=== PATIENT | male | born 1970 | race Hispanic/Latino ===

== ENCOUNTER 2024-09-10 14:43 | Emergency (ER) | payer BC ==
[~2024-09-10] VITALS: Ht 172.7 cm; Wt 78.5 kg
[2024-09-10] MEDS: ORPHENADRINE 60MG/2ML IM ONE (15:02)
[2024-09-10] MEDS: ketOROlac 30MG VIAL (30MG/ML) IM ONE (15:03)
--- NOTE | 2024-09-10 15:29 | ERN ---
General Chief Complaint: Lower Extremity Pain/Injury Stated Complaint: LFT LEG PAIN Time Seen by MD: 14:46 Source: patient History of Present Illness Initial Comments 54-year-old male with left knee pain comes in for further evaluation. Patient does have a history of osteoarthritis of the knees and states that he had right knee pain previously which improved with an injection placed by his PCP. He states that and dislocation the left knee started presenting with discomfort couple of days ago. Past Medical History Past Medical History: No Pertinent History Past Surgical History: None ROS Dictation CONSTITUTIONAL: No chills, no fever, no weakness, no diaphoresis, no malaise. HEAD/FACE: No signs of trauma. EENT: No eye pain, no blurred vision, no tearing, no double vision, no ear pain, no ear discharge, no nose pain, no nasal congestion, no throat pain, no throat swelling, no mouth pain. RESPIRATORY: No cough, no orthopnea, no SOB, no stridor, no wheezing. CARDIOVASCULAR: No chest pain, no edema, no palpitations, no syncope. GASTROINTESTINAL/ABDOMINAL: No abdominal pain, no constipation, no diarrhea, no nausea, no vomiting. GENITOURINARY: No abnormal discharge, no dysuria, no frequent urination, no hematuria. No complaints of pain in the genitals. MUSCULOSKELETAL: No back pain, no gout, joint pain,joint swelling, no muscle pain, no muscle stiffness, no neck pain. INTEGUMENTARY: No change in color, no change in hair/nails, no dryness, no lesion, no lumps, no rash. NEUROLOGICAL/PSYCH: No anxiety, not depressed, no emotional problem, no headache, no numbness, no pre-existing deficit, no history of seizures, no tremors, no weakness. HEMATOLOGIC/LYMPHATIC: Not anemic, no history of blood clots, no apparent bleeding, no bruising, glands not swollen. All Systems Negative, Except as Noted. Physical Exam Physical Exam Dictation VITAL SIGNS: Reviewed. GENERAL APPEARANCE: Alert, oriented x3, no acute distress, obese. HEAD AND FACE: Non-traumatic. EYES: PERRL, pink conjunctivas, eyelid no trauma, anterior chamber clear. EARS: Pinnas intact and no signs of trauma or erythema. Ear canals clear and no discharge. TMs no erythema. NOSE: No discharge, no bleeding. OROPHARYNX: Mouth normal, teeth no caries, tongue pink. Pharynx clear, no erythema. Tonsils no exudates, no abscesses noted. Mucous membrane moist. NECK: Supple, non-tender, no thyromegaly, no masses, no JVD, no bruits. BREAST: Deferred. CHEST: No tenderness, no crepitus, no paradoxical movement, no retractions. LUNGS: Clear, well-ventilated, symmetric, no rales, no wheezing, no rhonchi, no stridor, good breath sounds bilaterally. HEART: Regular rate, regular rhythm, no murmur, no gallops. VASCULAR: No peripheral edema. ABDOMEN: Soft, positive bowel sounds, nondistended, no guarding, nontender, no rebound, no masses no hepatomegaly, no splenomegaly, no Munoz's sign, no hernias. RECTAL: Deferred. GENITAL: Deferred. NEUROLOGICAL: Normal speech, gross motor function intact, gross sensory function intact. MUSCULOSKELETAL: Neck nontender, full range of motion, back nontender, full range of motion. EXTREMITIES: Nontender, full range of motion. SKIN: Color pink, dry, no turgor, no rash, no lacerations, no abrasions, no contusions. LYMPHATICS: Deferred. Results Laboratory and Microbiology Labs Reviewed?: Yes EKG/XRAY/US/CT/MRI X-RAY Comment Knee x-ray left-NAD MDM MDM: Differential diagnosis: Knee strain, osteoarthritis of the knee, fractured kneecap, dislocated knee, Patient is a 54-year-old male coming in to be evaluated for left knee pain. Patient states that he was extensive history of knee pain and has been diagnosed with osteoarthritis of both knees. States he got an injection on the right knee states he felt much better. X-ray performed today did not disclose acute findings knee immobilizer will be placed to help with acute on chronic inflammation. I advised him appropriate follow up with PCP in 1-2 days. ED Course Orders Procedure Category Date Status Time Knee 3vws Lt RAD 09/10/24 Taken 14:57 Orphenadrine Citrate PHA 09/10/24 Complete (Norflex) 15:00 Ketorolac PHA 09/10/24 Complete Tromethamine 30mg/Ml 15:00 Knee Immobilizer JERONIMO 09/10/24 Verified 16:47 Current Medications Medications (Trade) Dose Ordered Sig/Unruly Route PRN Reason Start Time Stop Time Status Last Admin Dose Admin Ketorolac Tromethamine (toRADol) 30 mg ONCE ONCE IM 09/10/24 15:00 09/10/24 15:01 DC 09/10/24 15:03 Orphenadrine Citrate (Norflex) 60 mg ONCE ONCE IM 09/10/24 15:00 09/10/24 15:01 DC 09/10/24 15:02 Vital Signs Date Time Temp Pulse Resp B/P (MAP) Pulse Ox O2 Delivery O2 Flow Rate FiO2 09/10/24 15:22 98.1 85 16 130/75 98 Room Air* 0 21 09/10/24 14:47 98.1 86 16 134/77 98 Room Air 0 DX & DISP Disposition: Discharge Departure Impression: Primary Impression: Osteoarthritis of left knee Condition: Stable Additional Instructions: FOLLOW-UP WITH PRIMARY CARE PROVIDER IN 1 TO 2 DAYS. TAKE MEDICATIONS DIRECTED HERE IN THE EMERGENCY ROOM. OKAY TO CONTINUE HOME MEDICATIONS UNLESS OTHERWISE DISCUSSED DURING YOUR VISIT IN THE EMERGENCY ROOM TODAY. RETURN TO YOUR NEAREST EMERGENCY ROOM IF SYMPTOMS WORSEN OR IF THERE IS NO IMPROVEMENT. CALL 911 IF YOU NEED IMMEDIATE ASSISTANCE. TAKE TYLENOL DATC-[id number]-[id number] NEEDED AND IF NO CONTRAINDICATIONS ARE PRESENT. INCREASE ORAL HYDRATION. A WOUND CULTURE OR URINE CULTURE WAS ORDERED HERE IN THE EMERGENCY ROOM DEPARTMENT PLEASE FOLLOW-UP WITH PRIMARY CARE PROVIDER AND ADVISE THEM TO GET REPEAT PORTS FROM OUR FACILITY. IF YOU HAD ANY KISHORE WRAP/SPLINTS THAT WERE APPLIED HERE, PLEASE DO NOT REMOVE THEM UNTIL YOU SEE YOUR PRIMARY CARE OR SPECIALTY. Referrals: Referrals: OTILIO BLACKMON MD, LUIS A MD Time of Disposition: 16:49 FERMIN CLIFTON MD Sep 10, 2024 15:29
--- NOTE | 2024-09-10 16:52 | NUR ---
KNEE IMOB PLACED PER MD INSTRUCTION
[2024-09-10 16:53] VITALS: BP 135/85; PULSE 78; RESP 16; TEMP 98.1; O2SAT 98
--- NOTE | 2024-09-10 16:54 | HMCIMG ---
KNEE 3VWS LT REASON: fall TECHNIQUE: 3 views were obtained. FINDINGS: There is no evidence of fracture or dislocation. There is no joint effusion. The soft tissues appear unremarkable. There is no evidence of a radiopaque foreign body. IMPRESSION: No acute findings.
== END 2024-09-10 17:04 | disposition home or self-care (01) ==
LOC: EDH 14:43
DX: M17.12 Unilateral primary osteoarthritis, left knee (principal)
CPT/HCPCS: 99284; 73562; 96372 ×2; J1885; J2360